=== PATIENT | female | born 1950 | race Caucasian/White ===

== ENCOUNTER → 2020-09-27 | Outpatient (CLI) | payer MEDICARE, OTHER ==
[~2020-09-27] MED LIST: CELEBREX200 MG PO; CLEOCIN HCL300 MG PO; ESTRACE1 MG PO; FEOSOL325 MG PO; IBUPROFEN800 MG PO; KLONOPIN2 MG PO; LOTENSIN40 MG PO; MIRAPEX0.5 MG PO; NEXIUM40 MG PO; PERCOCET 5/325 T1 EA PO; VITAMIN C 500500 MG PO; VITAMIN D250000 UNIT PO
== END ==
LOC: KOH-I 15:38
DX: S86.311A Strain of muscle(s) and tendon(s) of peroneal muscle group at lower leg level, right leg, initial encounter (principal); M25.571 Pain in right ankle and joints of right foot; R60.0 Localized edema; G89.29 Other chronic pain; X58.XXXA Exposure to other specified factors, initial encounter
CPT/HCPCS: 73721